=== PATIENT | female | born 1980 | race Caucasian/White ===

== ENCOUNTER 2021-07-02 15:32 | Emergency (ER) | payer MEDICAID ==
[~2021-07-02] VITALS: Ht 154.9 cm; Wt 77.1 kg
[2021-07-02 15:44] VITALS: BP 120/70
--- NOTE | 2021-07-02 15:50 | NUR ---
TENT 1.
[2021-07-02] MEDS ORDERED: ACETAMINOPHEN EXTRA STRENGTH 500 MG TAB PO ONE (16:30)
--- NOTE | 2021-07-02 18:00 | NUR ---
NO NURSING INTERVENTION NEEDED. SEEN & TREATED BY DR COLLIER.
[2021-07-02 18:45] VITALS: BP 120/70
--- NOTE | 2021-07-02 18:45 | NUR ---
Patient discharged with v/s stable. Written and verbal after care instructions given and explained. Patient verbalized understanding. Ambulatory with steady gait. All questions addressed prior to discharge. Advised to follow up with PMD.
== END 2021-07-02 18:45 | disposition home or self-care (01) ==
LOC: MED 15:32
DX: U07.1 COVID-19 (principal); R11.2 Nausea with vomiting, unspecified
CPT/HCPCS: 71045; 99283; Q0092

== ENCOUNTER 2021-08-30 07:56 | Emergency (ER) | payer MEDICAID ==
[~2021-08-30] VITALS: Ht 154.9 cm; Wt 79.8 kg
[2021-08-30 08:02] VITALS: BP 152/68
--- NOTE | 2021-08-30 08:07 | NUR ---
PT AMBULATED TO ER BED 7
--- NOTE | 2021-08-30 08:16 | NUR ---
DR. RODRIGUEZ EVALUATING PATIENT AT BEDSIDE.
[2021-08-30] MEDS ORDERED: DEXAMETHASONE 10 MG/ML VIAL PO ONE (08:20)
[2021-08-30] MEDS ORDERED: KETOROLAC 30 MG/ML VIAL IM ONE (08:20)
--- NOTE | 2021-08-30 08:37 | NUR ---
PATIENT TAKEN TO [facility] VIA WHEELCHAIR.
[2021-08-30] MEDS ORDERED: LORazepam 1 MG TAB PO ONE (09:00)
[2021-08-30] MEDS ORDERED: AMOX500C25 PO (09:23)
[2021-08-30] MEDS ORDERED: NAPR-54 PO (09:23)
--- NOTE | 2021-08-30 09:28 | NUR ---
RAPID STREP SPECIMEN TAKEN TO LAB AT THIS TIME.
[2021-08-30 09:30] VITALS: BP 145/70
--- NOTE | 2021-08-30 09:46 | NUR ---
Patient discharged with v/s stable. Written and verbal after care instructions ABOUT PHARYNGITIS AND UVULITIS given and explained. Patient alert, oriented and verbalized understanding of instructions. Wheel Chair Assisted with to car. All questions addressed prior to discharge. ID band removed. Patient advised to follow up with PMD. Rx of AMOXICILLIN AND NAPROSYN given.
--- NOTE | 2021-08-30 09:47 | NUR ---
The patient's care was reviewed and supervised by Kaitlyn Mcguire RN.
== END 2021-08-30 09:46 | disposition home or self-care (01) ==
LOC: MED 07:56
DX: J02.9 Acute pharyngitis, unspecified (principal); K12.2 Cellulitis and abscess of mouth; Z79.899 Other long term (current) drug therapy; Z88.5 Allergy status to narcotic agent
CPT/HCPCS: 70360; 87081; 96372; 99284; J1100; J1885; 99283

== ENCOUNTER 2023-05-06 15:34 | Emergency (ER) | payer MEDICAID ==
[~2023-05-06] VITALS: Ht 157.5 cm; Wt 72.6 kg
[~2023-05-06 15:34] MED LIST: AMOX500C25 PO; NAPR-54 PO
[2023-05-06 16:36] VITALS: BP 139/86; PULSE 90; RESP 20; TEMP 99; O2SAT 98
[2023-05-06 18:39] LABS: BASOPHILS % (AUTO) 0.2 % (0.0-2.0); EOSINOPHILS # (AUTO) 0.2 K/uL (0-0.4); EOSINOPHILS % (AUTO) 2.2 % (0.0-4.0); HEMATOCRIT 35.7 % (36-48); HEMOGLOBIN 11.4 g/dL (12.0-16.0); LYMPHOCYTES # (AUTO) 2.9 K/uL (2.5-16.5); LYMPHOCYTES % (AUTO) 27.2 % (20.5-51.1); MEAN CORPUSCULAR HEMOGLOBIN 26 pg (27-31); MEAN CORPUSCULAR HGB CONC 32 g/dL (33-37); MEAN CORPUSCULAR VOLUME 80.9 fL (80-94); MONOCYTES # (AUTO) 0.9 K/uL (0.8-1.0); MONOCYTES % (AUTO) 8.1 % (1.7-9.3); NEUTROPHILS # (AUTO) 6.7 K/uL (1.8-7.7); NEUTROPHILS % (AUTO) 62.3 % (42.2-75.2); PLATELET COUNT (AUTO) 310 K/uL (140-450); RED BLOOD CELL COUNT(AUTO) 4.41 MIL/uL (4.20-5.40); RED CELL DISTRIBUTION WIDTH 15.4 % (11.6-13.7); WHITE BLOOD COUNT (AUTO) 10.8 K/uL (4.8-10.8)
[2023-05-06 18:56] LABS: ANION GAP 13.7 (8-16); CALCIUM 8.6 mg/dL (8.5-10.1); CREATININE 0.7 mg/dL (0.6-1.3); POTASSIUM 3.7 mmol/L (3.5-5.1); TOTAL BILIRUBIN 0.3 mg/dL (0.0-1.0); TOTAL PROTEIN, SERUM 7.6 g/dL (6.4-8.2)
[2023-05-06 19:12] LABS: APPEARANCE,URINE CLEAR (CLEAR); BILIRUBIN,URINE NEGATIVE (NEGATIVE); BLOOD, URINE NEGATIVE (NEGATIVE); COLOR,URINE YELLOW (YELLOW); LEUKOCYTE ESTERASE ,URINE NEGATIVE (NEGATIVE); NITRITE, URINE NEGATIVE (NEGATIVE); PROTEIN,URINE NEGATIVE (NEGATIVE); UGLUCOSE NEGATIVE (NEGATIVE); UROBILINOGEN,URINE 0.2 EU/dL (0.2 - 1)
[2023-05-06] MEDS ORDERED: methocarbamoL 500 MG TAB PO STA (19:22)
[2023-05-06] MEDS ORDERED: KETOROLAC 30 MG/ML VIAL IM ONE (19:25)
[2023-05-06] MEDS ORDERED: LID5T TP (21:27)
[2023-05-06] MEDS ORDERED: METH-1681 PO (21:27)
[2023-05-06] MEDS ORDERED: IBUP-2213 PO (21:27)
[2023-05-06 21:35] VITALS: BP 138/80; PULSE 62; RESP 16; TEMP 98; O2SAT 99
== END 2023-05-06 21:35 | disposition home or self-care (01) ==
LOC: MED 15:34
DX: R07.89 Other chest pain (principal); Z90.49 Acquired absence of other specified parts of digestive tract; Z79.899 Other long term (current) drug therapy; Z79.1 Long term (current) use of non-steroidal anti-inflammatories (NSAID); Z79.2 Long term (current) use of antibiotics; Z88.5 Allergy status to narcotic agent
CPT/HCPCS: 36415; 71045; 80053; 81003; 81025; 83690; 84484; 85025; 93005; 96374; 99285; J1885